=== PATIENT | female | born 1990 | race Caucasian/White ===

== ENCOUNTER 2019-10-12 09:23 | Emergency (ER) | payer OTHER ==
[2019-10-12 09:30] VITALS: TEMP 98.6; BMI 19.5
--- NOTE | 2019-10-12 09:46 | PDOC ---
History of Present Illness - General Chief Complaint: Lightheaded Stated Complaint: Lightheaded Time Seen by Provider: 10/12/19 09:45 - History of Present Illness Initial Comments: 28F without PMH presents to the ED with lightheadedness. She came into the ED because she was tachycardic at home and was concerned of syncope while being home alone with her child. She states that the first episode of lightheadedness was a few days ago while in the shower with a visual aura and felt "heart racing", and it self resolved in a few seconds. She's had intermittent episodes of lightheadedness without aura or headaches since then. She reports feeling warm recently and dizziness upon standing. Denies anxiousness, syncope, CP, SOB, n/v, dysuria or neurological symptoms. HPI PMH: as in HPI SH: none Meds: none Allergies: NKDA Tob/Etoh/Rec drugs: negative x3 PCP: none currently ROS GENERAL/CONSTITUTIONAL: No fever or chills. No weakness. HEENT: No change in vision. No ear pain or discharge. No sore throat. CARDIOVASCULAR: No chest pain or shortness of breath RESPIRATORY: No cough, wheezing, or hemoptysis. GASTROINTESTINAL: No nausea, vomiting, diarrhea or constipation. GENITOURINARY: No dysuria, frequency, or change in urination. MUSCULOSKELETAL: No joint or muscle swelling or pain. No neck or back pain. SKIN: No rash NEUROLOGIC: No headache, vertigo, loss of consciousness, or change in strength/sensation. ENDOCRINE: No increased thirst. No abnormal weight change HEMATOLOGIC/LYMPHATIC: No anemia, easy bleeding, or history of blood clots. ALLERGIC/IMMUNOLOGIC: No hives or skin allergy. PE GENERAL: Awake, alert, and fully oriented, in no acute distress HEAD: No signs of trauma, normocephalic, atraumatic EYES: PERRLA, EOMI, sclera anicteric, conjunctiva clear ENT: Auricles normal inspection, hearing grossly normal, nares patent, oropharynx clear without exudates. Moist mucosa NECK: Normal ROM, supple, no lymphadenopathy, JVD, or masses HEART: Regular rate and rhythm, normal S1 and S2, no murmurs, rubs or gallops, peripheral pulses normal and equal bilaterally. LUNGS: No distress, speaks full sentences, clear to auscultation bilaterally ABDOMEN: Soft, nontender, normoactive bowel sounds. No guarding, no rebound. No masses EXTREMITIES: Normal inspection, Normal range of motion, no edema. No clubbing or cyanosis. NEUROLOGICAL: CNII-XII grossly intact. Normal speech, normal gait, no focal sensorimotor deficits SKIN: Warm, Dry, normal turgor, no rashes or lesions noted Assessment and Plan 1. Vasovagal near syncope 2. Dehydration - CMP + 1L NS 3. Anemia - CBC 4. R/o arryhthmia -EKG was normal sinus rhythm 5. Hyperthyroidism - TSH levels 6. PE - low risk Well's Score Isaias Gastelum, PGY1 Emergency Medicine Past History - Medical History Allergies/Adverse Reactions: Allergies Allergy/AdvReac Type Severity Reaction Status Date / Time No Known Allergies Allergy Verified 10/12/19 09:27 Home Medications: Ambulatory Orders Pnv No.95/Ferrous Fum/Folic AC [ Vitamin Tablet] 1 each PO DAILY 01/08/17 Ibuprofen [Motrin -] 600 mg PO QID PRN #28 tablet 01/11/17 Asthma: No Cancer: No Cardiac Disorders: No COPD: No Diabetes: No HTN: No Seizures: No Thyroid Disease: No - Reproductive History Is Patient Now?: No - Immunization History Immunization Up to Date: Yes - Psycho-Social/Smoking History Smoking History: Never smoked Have you smoked in the past 12 months: No - Substance Abuse Hx (Audit-C & DAST Scrn) How often the patient has a drink containing alcohol: Never Score: In Men: 4 or > Positive; In Women: 3 or > Positive: 0 Screen Result (Pos requires Nsg. Audit-10AR): Negative In the last yr the pt used illegal drug/Rx for NonMed reason: No Score: Yes response is considered Positive: 0 Screen Result (Positive result requires Nsg. DAST-10): Negative *Physical Exam - Vital Signs Last Vital Signs Temp Pulse Resp BP Pulse Ox 98.6 F 98 H 18 126/88 100 10/12/19 09:27 10/12/19 09:27 10/12/19 09:27 10/12/19 09:27 10/12/19 09:27 ED Treatment Course - LABORATORY CBC & Chemistry Diagram: 10/12/19 10:20 10/12/19 10:20 Medical Decision Making - Medical Decision Making 28F without PMH presents to the ED with lightheadedness. Patient was tach ycardic, but otherwise the physical exam was unremarkable. Differential includes but is not limited to vasovagal syncope, dehydration, arrhythmia, anxiety, PE, hyperthyroidism. Low risk Well's Score. CBC, CMP, and TSH were within normal limits. Urine preg was negative. Patient was given 1L NS without much improvement. Workup was largely unremarkable. Repeat vitals demonstrated improvement of tachycardia with HR 88. Patient is stable for discharge and advised to follow up with primary medical doctor. Discharge - Discharge Information Problems reviewed: Yes Clinical Impression/Diagnosis: Lightheaded Condition: Stable Disposition: HOME - Admission No - Follow up/Referral Referrals: [facility] [place] [facility] at [place] [Provider Group] - Patient Discharge Instructions Patient Printed Discharge Instructions: DI for Syncope in Adults (Fainting), DI for Dizziness-Nonvertigo Additional Instructions: You came into the ED for 3 days of on-and-off lightheadedness. We did a physical exam which was normal. Bloodwork was done which showed normal electrolytes, hemoglobin, and thyroid hormone levels. Urine was negative. You were given 1 liter of IV normal saline, which didn't improve your lightheadedness. It is advised that you follow up with the referral to the primary medical doctor. In the mean time, you should stay hydrated. Return to the ED if you pass- out/faint, develop severe headaches or stroke-like symptoms. Print Language: SERBIAN - Post Discharge Activity
[2019-10-12] MEDS ORDERED: SODIUM CHLORIDE 0.9% 500 ML INFUS.BAG IV ONE (10:17)
[2019-10-12 11:09] LABS: BASO % 0.2 % (0-2.0); EOS % 0.2 % (0-4.5); HEMATOCRIT 38.4 % (32.4-45.2); LYMPH % 27.8 % (8-40); MCH 30.4 pg (25.7-33.7); MCHC 33.8 g/dl (32.0-36.0); MEAN CELL VOLUME 90.2 fl (80-96); MEAN PLT VOLUME 8.5 fl (7.5-11.1); MONO % 7.7 % (3.8-10.2); NEUT % 64.1 % (42.8-82.8); PLATELET COUNT 184 K/MM3 (134-434); RBC 4.26 M/mm3 (3.60-5.2); RDW 13.1 % (11.6-15.6); WHITE BLOOD COUNT 6.3 K/mm3 (4.0-10.0)
--- NOTE | 2019-10-12 11:14 | PDOC ---
Documentation entered by Delfina Flores SCRIBE, acting as scribe for Karl Newsome MD. Karl Newsome MD: This documentation has been prepared by the Mark bradley Ana, SCRIBE, under my direction and personally reviewed by me in its entirety. I confirm that the documentation accurately reflects all work, treatment, procedures, and medical decision making performed by me. Attending Attestation - Resident Resident Name: Isaias Gastelum - ED Attending Attestation I have performed the following: I have examined & evaluated the patient, The case was reviewed & discussed with the resident, I agree w/resident's findings & plan, Exceptions are as noted - HPI HPI: 10/12/19 09:45 Patient is a 28 year old female with no significant past medical history who presents to the ED with lightheadedness. Pt states that over the past few days, she has had episodes of lightheadedness, feeling like she is about to faint. Pt denies any LOC. She states that these episodes are usually self-limited, lasting a few seconds to a minute each time. Denies any CP/SOB/palpitations associated with the lightheadedness. Denies any inciting factors. Denies F/C. Patient denies: syncope, being anxious, neurological symptoms, nausea, vomiting, SOB, chest pain, dysuria, or any other related symptoms. Allergies: NKDA - Physicial Exam PE: 10/12/19 11:02 See resident exam. - Medical Decision Making 10/12/19 11:18 28 F with pre-syncope. EKG normal, no evidence of arrhythmia. Vitals in ED stable. - Labs, UPT - IVF - Orthostatics 10/12/19 12:29 Labs, orthostatics wnl Pt reports no change in how she feels after fluids but denies any lightheadedness currently. Pt is well appearing, with normal vitals. Clinically stable for DC at this time. I discussed the physical exam findings, ancillary test results and final diagnoses with the patient. I answered all of the patient's questions. The patient was satisfied with the care received and felt comfortable with the discharge plan and treatment plan. The patient agrees to follow up with the primary care physician within 24-72 hours. Discharge - Discharge Information Problems reviewed: Yes Clinical Impression/Diagnosis: Lightheaded Condition: Stable Disposition: HOME - Follow up/Referral Referrals: [facility] [place] [facility] at [place] [Provider Group] - Patient Discharge Instructions Patient Printed Discharge Instructions: DI for Syncope in Adults (Fainting), DI for Dizziness-Nonvertigo Additional Instructions: You came into the ED for 3 days of on-and-off lightheadedness. We did a physical exam which was normal. Bloodwork was done which showed normal electrolytes, hemoglobin, and thyroid hormone levels. Urine was negative. You were given 1 liter of IV normal saline, which didn't improve your lightheadedness. It is advised that you follow up with the referral to the primary medical doctor. In the mean time, you should stay hydrated. Return to the ED if you pass- out/faint, develop severe headaches or stroke-like symptoms. Print Language: UPPER SORBIAN - Post Discharge Activity
[2019-10-12 11:55] LABS: BILIRUBIN,TOTAL 0.7 mg/dL (0.2-1); BLOOD UREA NITROGEN 11.8 mg/dL (7-18); CREATININE 0.6 mg/dL (0.55-1.3); POTASSIUM 4.4 mmol/L (3.5-5.1); TOT PROT 7.4 g/dl (6.4-8.2)
[2019-10-12 12:40] LABS: PH,URINE 7.5 (5.0-8.0); URINE APPEARANCE CLEAR; URINE BILIRUBIN NEGATIVE (NEGATIVE); URINE COLOR YELLOW; URINE GLUCOSE (UA) NEGATIVE (NEGATIVE); URINE KETONE NEGATIVE (NEGATIVE); URINE LEUK ESTERASE NEGATIVE (NEGATIVE); URINE NITRITE NEGATIVE (NEGATIVE); URINE PROTEIN NEGATIVE (NEGATIVE); URINE UROBILINOGEN 0.2 mg/dL (0.2-1.0)
[2019-10-12 13:08] VITALS: BP 121/72; PULSE 88
--- NOTE | 2019-10-12 16:08 | EKG ---
Test Reason : Blood Pressure : / mmHG Vent. Rate : 090 BPM Atrial Rate : 090 BPM P-R Int : 144 ms QRS Dur : 078 ms QT Int : 356 ms P-R-T Axes : 084 055 057 degrees QTc Int : 435 ms NORMAL SINUS RHYTHM POSSIBLE LEFT ATRIAL ENLARGEMENT BORDERLINE ECG NO PREVIOUS ECGS AVAILABLE Confirmed by PATSY DILL MD ([id number]) on 10/12/2019 4:08:31 PM Referred By: Confirmed By:PATSY DILL MD
== END 2019-10-12 13:10 | disposition home or self-care (01) ==
LOC: JER 09:23
DX: R42 Dizziness and giddiness (principal)
CPT/HCPCS: 36415; 80053; 81003; 84443; 84703; 85025; 93005; 93010; 99284-25

== ENCOUNTER 2020-12-25 23:00 | Inpatient (IN) | payer OTHER ==
[2020-12-25] MEDS ORDERED: ELECTROLYTE-148 SOLN 1,000 ML IV SCH (23:45)
[2020-12-25] MEDS ORDERED: AMPICILLIN SODIUM 2 GM VIAL ONE (23:58)
[2020-12-25] MEDS ORDERED: BUTORPHANOL TARTRATE 1 MG/ML VIAL IVPB PRN (23:58)
[2020-12-26] MEDS ORDERED: AMPICILLIN SODIUM 2 GM VIAL IVPB ONE
[2020-12-26 00:21] LABS: BASO % 0.3 % (0-2.0); EOS % 0.5 % (0-4.5); HEMATOCRIT 31.1 % (32.4-45.2); LYMPH % 25.8 % (8-40); MCH 30.4 pg (25.7-33.7); MCHC 35.4 g/dl (32.0-36.0); MEAN CELL VOLUME 85.9 fl (80-96); MEAN PLT VOLUME 7.5 fl (7.5-11.1); MONO % 8.1 % (3.8-10.2); NEUT % 65.3 % (42.8-82.8); PLATELET COUNT 140 10^3/uL (134-434); RBC 3.62 M/mm3 (3.60-5.2); RDW 13.9 % (11.6-15.6); WHITE BLOOD COUNT 7.6 K/mm3 (4.0-10.0)
[2020-12-26 00:37] LABS: INR 0.86 (0.83-1.09); PROTHROMBIN TIME (PATIENT) 10.1 SEC (9.7-13.0)
[2020-12-26 00:39] LABS: ACTIVATED PTT 23.5 SECONDS (25.2-36.5)
[2020-12-26 00:42] LABS: CALCIUM 8.5 mg/dL (8.5-10.1)
[2020-12-26 00:43] LABS: BLOOD UREA NITROGEN 13.8 mg/dL (7-18)
[2020-12-26 00:46] LABS: CREATININE 0.6 mg/dL (0.55-1.3)
[2020-12-26 01:17] VITALS: BMI 26.2
[2020-12-26] MEDS ORDERED: AMPICILLIN SODIUM 1 GM VIAL ONE ×2 (03:29→07:35)
[2020-12-26] MEDS: AMPICILLIN SODIUM 1 GM VIAL IVPB SCH ×3 (03:33→14:47)
[2020-12-26] MEDS ORDERED: FENTANYL/BUPIVACAINE/NS/PF - PCEA - 50 ML DISP.SYRIN EP ONE (08:11)
[2020-12-26] MEDS ORDERED: PCA PUMP NR ONE ×2 (08:11→14:30)
[2020-12-26] MEDS ORDERED: OXYTOCIN 30 UNITS in 0.9% NS 30 UNIT/500 ML INFUS.BAG IVPB SCH (08:15)
[2020-12-26] MEDS: ELECTROLYTE-148 SOLN 1,000 ML IV SCH ×2 (09:15)
[2020-12-26] MEDS ORDERED: NALOXONE HCL 0.4 MG/ML VIAL IVPUSH PRN (09:39)
[2020-12-26] MEDS ORDERED: FENTANYL/BUPIVACAINE/NS/PF - PCEA - 50 ML DISP.SYRIN EP SCH ×2 (09:45→10:00)
[2020-12-26 09:56] LABS: POC NITRAZINE POS
[2020-12-26 10:54] LABS: HIV INTERPRETATION NEGATIVE (NEGATIVE)
[2020-12-26] MEDS ORDERED: OXYTOCIN 20 UNITS in 0.9% NS 20 UNIT/1,000 ML INFUS.BAG IV ONE (11:25)
[2020-12-26 14:33] LABS: CORD HCO3 18.3 mmHg (20-29); CORD PCO2 36.7 mmHg (30-78); CORD pH 7.316 (7.14-7.44)
[2020-12-26] MEDS ORDERED: METHYLERGONOVINE MALEATE 0.2 MG/1 ML AMP IM PRN (15:03)
[2020-12-26] MEDS ORDERED: BENZOCAINE 28 GM HEMORRHOIDAL OINTMENT PR PRN (15:03)
[2020-12-26] MEDS ORDERED: WITCH HAZEL 50% (TUCKS) 40 PAD/JAR PAD TP PRN (15:03)
[2020-12-26] MEDS ORDERED: BENZOCAINE 20% 57 GM BOTTLE TP PRN (15:03)
[2020-12-26] MEDS ORDERED: BISACODYL 10 MG SUPP.RECT PR PRN (15:03)
[2020-12-26] MEDS ORDERED: OXYTOCIN 20 UNITS in 0.9% NS 20 UNIT/1,000 ML INFUS.BAG IV SCH (15:15)
[2020-12-26] MEDS: ACETAMINOPHEN 325 MG TABLET (FP) PO PRN ×2 (16:12→23:05)
[2020-12-26] MEDS: LABETALOL HCL 200 MG TABLET (FP) PO SCH (22:21)
[2020-12-27 07:31] LABS: BASO % 0.4 % (0-2.0); EOS % 0.4 % (0-4.5); HEMOGLOBIN 10.4 GM/dL (10.7-15.3); MCH 30.4 pg (25.7-33.7); MCHC 34.8 g/dl (32.0-36.0); MEAN CELL VOLUME 87.4 fl (80-96); MEAN PLT VOLUME 7.1 fl (7.5-11.1); MONO % 5.8 % (3.8-10.2); NEUT % 75.4 % (42.8-82.8); PLATELET COUNT 132 10^3/uL (134-434); RBC 3.43 M/mm3 (3.60-5.2); RDW 14.4 % (11.6-15.6); WHITE BLOOD COUNT 7.8 K/mm3 (4.0-10.0)
[2020-12-27] MEDS: ACETAMINOPHEN 325 MG TABLET (FP) PO PRN (09:33)
[2020-12-27] MEDS: LABETALOL HCL 200 MG TABLET (FP) PO SCH ×2 (09:38→21:20)
[2020-12-27] MEDS ORDERED: FLU VACC QS2021-22(6MOS UP)/PF 60 MCG/0.5 ML SYRINGE IM ONE (10:00)
[2020-12-28 09:11] VITALS: BP 128/81; PULSE 67; TEMP 98.4
[2020-12-28] MEDS: LABETALOL HCL 200 MG TABLET (FP) PO SCH (11:33)
== END 2020-12-28 12:30 | disposition home or self-care (01) | DRG 560 ==
LOC: JLDR 23:00 → J3W 12-26 14:45
PROVIDERS: ADMIT Obstetrics & Gynecology; ATTEND Obstetrics & Gynecology
PROC: 10E0XZZ Delivery of Products of Conception, External Approach (ICD-10-PCS; principal; 2020-12-26)
DX: O80 Encounter for full-term uncomplicated delivery (principal); Z3A.39 39 weeks gestation of pregnancy; Z37.0 Single live birth
CPT/HCPCS: 36415; 36600; 59409; 80048; 82803; 83986-QW; 85025; 85610; 85730; 86762; 86780; 86850; 86900; 86901; 87340; 87389; 90686; C9803; U0003; U0005

== ENCOUNTER 2023-04-01 06:45 | Inpatient (IN) | payer OTHER ==
[2023-04-01] MEDS: ELECTROLYTE-148 SOLN 1,000 ML IV SCH (08:00)
[2023-04-01 09:18] LABS: BASO % 0.2 % (0-2.0); EOS % 0.3 % (0-4.5); HEMATOCRIT 32.1 % (32.4-45.2); HEMOGLOBIN 11.5 GM/dL (10.7-15.3); LYMPH % 19.7 % (8-40); MCH 33.2 pg (25.7-33.7); MCHC 35.7 g/dl (32.0-36.0); MEAN CELL VOLUME 93.1 fl (80-96); MEAN PLT VOLUME 6.2 fl (7.5-11.1); MONO % 8.2 % (3.8-10.2); NEUT % 71.6 % (42.8-82.8); PLATELET COUNT 132 10^3/uL (134-434); RBC 3.45 M/mm3 (3.60-5.2); WHITE BLOOD COUNT 6.6 K/mm3 (4.0-10.0)
[2023-04-01 09:25] LABS: INR 0.9 (0.83-1.09); PROTHROMBIN TIME (PATIENT) 10.4 SEC (9.7-13.0)
[2023-04-01 09:28] LABS: ACTIVATED PTT 22.9 SECONDS (25.2-36.5)
[2023-04-01 09:38] LABS: POTASSIUM 3.8 mmol/L (3.5-5.1)
[2023-04-01 09:39] LABS: CALCIUM 8.1 mg/dL (8.5-10.1)
[2023-04-01 09:40] LABS: BLOOD UREA NITROGEN 5.8 mg/dL (7-18)
[2023-04-01 09:43] LABS: CREATININE 0.4 mg/dL (0.55-1.3)
[2023-04-01] MEDS ORDERED: BENZOCAINE 20% 57 GM BOTTLE TP PRN (10:22)
[2023-04-01] MEDS ORDERED: oxyCODONE HCL 5 MG TABLET PO PRN (10:22)
[2023-04-01] MEDS ORDERED: METHYLERGONOVINE MALEATE 0.2 MG/1 ML AMP IM PRN (10:22)
[2023-04-01] MEDS ORDERED: BISACODYL 10 MG SUPP.RECT RC PRN (10:22)
[2023-04-01] MEDS ORDERED: WITCH HAZEL 50% (TUCKS) 40 PAD/JAR PAD TP PRN (10:22)
[2023-04-01] MEDS ORDERED: BENZOCAINE 28 GM HEMORRHOIDAL OINTMENT TP PRN (10:22)
[2023-04-01 10:28] VITALS: BMI 26.1
[2023-04-01] MEDS ORDERED: OXYTOCIN 30 UNITS in 0.9% NS 30 UNIT/500 ML INFUS.BAG IVPB ONE (10:51)
[2023-04-01] MEDS: OXYTOCIN 30 UNITS in 0.9% NS 30 UNIT/500 ML INFUS.BAG IVPB SCH (10:57)
[2023-04-01] MEDS: FERROUS SO4 325 MG TABLET (FP) PO SCH (12:54)
[2023-04-01] MEDS: OXYTOCIN 20 UNITS in 0.9% NS 20 UNIT/1,000 ML INFUS.BAG IV SCH (12:54)
[2023-04-01] MEDS ORDERED: FENTANYL/BUPIVACAINE/NS/PF - PCEA - 50 ML DISP.SYRIN EP ONE ×2 (13:00→18:22)
[2023-04-01] MEDS ORDERED: NALOXONE HCL 0.4 MG/ML VIAL IVPUSH PRN (13:19)
[2023-04-01] MEDS ORDERED: LIDO 2%/EPI 1:200000 PRESRVFRE (20 ML SDVIAL) ONE (13:20)
[2023-04-01] MEDS ORDERED: BUPIVACAINE HCL/PF 0.25% (2.5MG/ML) 10 ML VIAL ONE (13:20)
[2023-04-01] MEDS: FENTANYL/BUPIVACAINE/NS/PF - PCEA - 50 ML DISP.SYRIN EP SCH (13:40)
[2023-04-01] MEDS ORDERED: OXYTOCIN 20 UNITS in 0.9% NS 20 UNIT/1,000 ML INFUS.BAG IV ONE ×2 (19:16→22:37)
[2023-04-01 20:58] LABS: CORD BASE EXCESS -6.3 mmol/L (0-2); CORD HCO3 22.9 mmHg (20-29); CORD PCO2 59.7 mmHg (30-78); CORD pH 7.201 (7.14-7.44)
[2023-04-01 21:00] LABS: CORD BASE EXCESS -4.2 mmol/L (0-2); CORD HCO3 19.7 mmHg (20-29); CORD pH 7.393 (7.14-7.44)
[2023-04-01] MEDS ORDERED: ACETAMINOPHEN 325 MG TABLET (FP) ONE (21:01)
[2023-04-01] MEDS: ACETAMINOPHEN 325 MG TABLET (FP) PO PRN (21:05)
[2023-04-02 07:08] LABS: BASO % 0.2 % (0-2.0); EOS % 0.1 % (0-4.5); HEMATOCRIT 33.8 % (32.4-45.2); HEMOGLOBIN 11.8 GM/dL (10.7-15.3); LYMPH % 15.3 % (8-40); MCHC 35.1 g/dl (32.0-36.0); MEAN CELL VOLUME 94.2 fl (80-96); MEAN PLT VOLUME 6.5 fl (7.5-11.1); NEUT % 77.4 % (42.8-82.8); PLATELET COUNT 134 10^3/uL (134-434); RBC 3.58 M/mm3 (3.60-5.2); RDW 13.9 % (11.6-15.6); WHITE BLOOD COUNT 8.8 K/mm3 (4.0-10.0)
[2023-04-02] MEDS ORDERED: PRENATAL VITAMINS W/ FOLIC ACID TABLET (FP) PO SCH (10:00)
[2023-04-02] MEDS: IBUPROFEN 600 MG TABLET (FP) PO PRN (17:38)
[2023-04-02 21:59] VITALS: TEMP 97.8
[2023-04-02] MEDS ORDERED: SENNOSIDES/DOCUSATE COMBO (SENNA PLUS) TABLET (UD) PO PRN (22:00)
[2023-04-03] MEDS: FLU VACCINE (FLULAVAL) PF 60 MCG/0.5 ML SYRINGE 2023-2024 IM ONE (09:55)
[2023-04-03 10:09] VITALS: BP 108/76; PULSE 90; RESP 17
== END 2023-04-03 12:08 | disposition home or self-care (01) | DRG 560 ==
LOC: JLDR 06:45 → J3W 22:16
PROVIDERS: ADMIT Obstetrics & Gynecology; ATTEND Obstetrics & Gynecology
PROC: 10E0XZZ Delivery of Products of Conception, External Approach (ICD-10-PCS; principal; 2023-04-01)
DX: O41.03X0 Oligohydramnios, third trimester, not applicable or unspecified (principal); Z3A.38 38 weeks gestation of pregnancy; O99.02 Anemia complicating childbirth; Z37.0 Single live birth
CPT/HCPCS: 36415; 36600; 80048; 82803; 85025; 85610; 85730; 86780; 86850; 86900; 86901; 90686; G0008